=== PATIENT | male | born 1995 | race Caucasian/White ===

== ENCOUNTER 2016-10-25 14:56 | Emergency (ER) | payer SELFPAY ==
[~2016-10-25] VITALS: Ht 170.2 cm; Wt 94.3 kg
[2016-10-25 16:00] VITALS: BP 122/66
--- NOTE | 2016-10-25 16:05 | PHYS DOC ---
Adult General Chief Complaint Chief Complaint: ANIMAL BITE HPI HPI Patient is a 21 year old female presents emergency department stating that he was outside with his the a stray dog came up and was trying to attack his other down. He states he was trying to pull the dog's department with a stray dog bit him in the left hand and scratched him in the left forearm. He states that his tetanus immunization is not up-to-date. He denies any drainage or discharge coming from the areas. He has full range of motion of the hand wrist and forearm. Patient denies any numbness or tingling in his hands and wrist and hands. Peripheral pulses 2+ cap refill brisk less than 2 seconds. Review of Systems Review of Systems Constitutional: Denies fever or chills [] Eyes: Denies change in visual acuity, redness, or eye pain [] HENT: Denies nasal congestion or sore throat [] Respiratory: Denies cough or shortness of breath [] Cardiovascular: No additional information not addressed in HPI [] GI: Denies abdominal pain, nausea, vomiting, bloody stools or diarrhea [] : Denies dysuria or hematuria [] Musculoskeletal: Denies back pain or joint pain [] Integument: Denies rash or skin lesions. Don't bite to the left hand and scratched to the left forearm Neurologic: Denies headache, focal weakness or sensory changes [] Endocrine: Denies polyuria or polydipsia [] Current Medications Current Medications Current Medications Medications (Trade) Dose Ordered Sig/Jase Start Time Stop Time Status Last Admin Dose Admin Diphtheria/ Tetanus/Acell Pertussis (Boostrix) 0.5 ml ONCE ONCE 10/25/16 16:30 10/25/16 16:31 Allergies Allergies Allergies Coded Allergies Type Severity Reaction Last Updated Verified No Known Drug Allergies 10/25/16 No Physical Exam Physical Exam Constitutional: Well developed, well nourished, no acute distress, non-toxic appearance. [] HENT: Normocephalic, atraumatic, bilateral external ears normal, oropharynx moist, no oral exudates, nose normal. [] Eyes: PERRLA, EOMI, conjunctiva normal, no discharge. [] Neck: Normal range of motion, no tenderness, supple, no stridor. [] Cardiovascular:Heart rate regular rhythm Lungs & Thorax: No respiratory distress noted Skin: Warm, dry, no erythema, no rash. Patient was noted to have 2 puncture wounds one in between the fourth and fifth finger of the other on the back of the left hand. Patient was also noted to have a scratch along the left forearm area. Back: No tenderness Extremities: No tenderness, no cyanosis, no clubbing, ROM intact, no edema. [] Neurologic: Alert and oriented X 3, normal motor function, normal sensory function, no focal deficits noted. [] Psychologic: Affect normal, judgement normal, mood normal. [] EKG EKG [] Radiology/Procedures Radiology/Procedures [] Course & Med Decision Making Course & Med Decision Making Pertinent Labs and Imaging studies reviewed. (See chart for details) X-rays negative for foreign bodies per Dr Mckinley Bansal state that they have clean the area with soap and water and then applied antibiotic ointment to the area. Patient will be updated with his tetanus immunization here in the emergency department. Be discharged home on Augmentin. He was recommended to follow-up with his primary care physician in the next 3-5 days. Signs symptoms to return back to emergency department as been provided. Patient agrees with discharge instructions treatment regimens and follow-up recommendations. Patient was offered rabies vaccination with patient refusing at this time is afebrile at the animal can be found and monitored. Patient was provided with risks and benefits of the vaccination. [] Dragon Disclaimer Dragon Disclaimer This electronic medical record was generated, in whole or in part, using a voice recognition dictation system. Departure Departure Impression: Primary Impression: Dog bite Disposition: 01 HOME, SELF-CARE Condition: STABLE Referrals: NO PCP (PCP) Patient Instructions: Animal Bite, [id number] Additional Instructions: Keep the area clean and dry. Clean the site with soap and water and apply antibiotic ointment. Watch for signs and symptoms of infection: Redness, warmth, tenderness, any yellow/greenish transient become from the site physician occur follow-up to primary care physician immediately. Tylenol or ibuprofen for pain and discomfort. Augmentin as prescribed. Ice packs on 20 minutes off 20 minutes several times a day. Elevation as much as possible. Follow-up through primary care physician next 3-5 days. Return back to emergency prior signs and symptoms that become worse. Scripts Amoxicillin/Potassium Clav (AUGMENTIN 875-125 TABLET) 1 Each Tablet 1 TAB PO BID, #20 TAB Prov: SHANIQUE VAZQUEZ APRN 10/25/16 SHANIQUE VAZQUEZ APRN Oct 25, 2016 16:05
[2016-10-25] MEDS ORDERED: AMOX1TAB61 PO (16:20)
--- NOTE | 2016-10-25 16:27 | RAD ---
Examination: 3 views of the left hand History: History of dogbite to the left hand Comparison: None available Findings: The alignment of the metacarpophalangeal joints, interphalangeal joints grossly appears unremarkable. There is no acute fracture identified. Probable small puncture wound identified in the dorsal aspect of the hand. Impression: 1. No acute osseous findings.
[2016-10-25] MEDS ORDERED: DIPHTH,PERTUSS(ACELL),TET TOX 0.5 ML DISP.SYRIN. VAX IM ONE (16:30)
== END 2016-10-25 16:29 | disposition home or self-care (01) ==
LOC: ER 14:56
DX: S61.452A Open bite of left hand, initial encounter (principal); W54.0XXA Bitten by dog, initial encounter; Y93.89 Activity, other specified; Y99.8 Other external cause status; Y92.89 Other specified places as the place of occurrence of the external cause
CPT/HCPCS: 73130; 90471; 90715; 99284-25